=== PATIENT | female | born 1955 | race Caucasian/White ===

== ENCOUNTER 2019-03-24 08:17 | Outpatient (CLI) | payer MEDICARE ==
--- NOTE | 2019-03-24 10:30 | CT ---
CT CHEST AND ABDOMEN AND PELVIS WITH IV CONTRAST: DATE: 03/24/2019. PROVIDED CLINICAL HISTORY: Weight loss and nausea. FINDINGS: No comparisons. Vascular calcification including coronary calcium is demonstrated. The heart, pericardium, and great vessels demonstrate an otherwise unremarkable CT appearance. The lungs appear free of significant o pacity. There is no pleural fluid or pneumothorax apparent. There is no evidence for thoracic lymph node enlargement. The airway appears patent and of normal caliber. There is a small simple cyst at the superior pole of the right kidney. The solid abdominal organs de monstrate an otherwise unremarkable CT appearance. There is no bowel dilatation, inflammatory fat stranding, free fluid, or lymph node enlargement appar ent. Vascular calcifications are noted involving the abdominal aorta and its branches. There is prominenc e of the gastric mucosa in the region of the gastric cardiac, nonspecific. The osseous structures demonstrate no concerning lytic or blastic lesions. Lower lumbar spine degene rative changes are seen. IMPRESSION: 1. Nonspecific prominence of the gastric mucosa in the region of the cardia. This could be on the b asis of coapted normal gastric mucosa. Given the patient's history, correlation with upper GI may be useful. 2. Chronic findings as above. POS: [facility]
[2019-03-24] MEDS ORDERED: ISOVUE-370 76%-LOCM 1 ML ONE (11:22)
== END 2019-03-24 08:18 | disposition home or self-care (01) ==
LOC: BICCT 08:17
PROVIDERS: ATTEND Family Medicine
DX: D72.829 Elevated white blood cell count, unspecified (principal); R61 Generalized hyperhidrosis; R63.4 Abnormal weight loss; I25.10 Atherosclerotic heart disease of native coronary artery without angina pectoris; N28.1 Cyst of kidney, acquired; I70.0 Atherosclerosis of aorta; M47.816 Spondylosis without myelopathy or radiculopathy, lumbar region
CPT/HCPCS: 71260; 74177; Q9966

== ENCOUNTER 2019-06-29 09:22 | Day surgery (SDC) | payer MEDICARE ==
[2019-06-25 10:39] VITALS: BMI 21.4
--- NOTE | 2019-06-29 18:14 | OP ---
DATE OF PROCEDURE: 06/29/2019 PROCEDURES PERFORMED: Colonoscopy with snare polypectomy. PREOPERATIVE DIAGNOSIS: Immunohistochemical stain positive for fecal occult blood. DESCRIPTION OF PROCEDURE: Informed consent was obtained from the patient. She was sedated with total intravenous anesthesia. The rectal exam was performed and was normal. The colonoscope was advanced easily to the cecum with the ileocecal valve and appendiceal orifice were clearly identified. The preparation quality was excellent. There was a single 4 mm pale polyp removed from the sigmoid colon by cold snare polypectomy. This was not retrieved by the retrieval device. She had mild diverticulosis of the sigmoid colon. There were moderate internal hemorrhoids on retroflexed views in the rectum. The remainder of the colonic mucosa was normal. IMPRESSION: 1. There was a 4 mm pale polyp removed from the sigmoid colon by cold snare polypectomy. This could not be retrieved. 2. Moderate internal hemorrhoids. 3. Mild sigmoid diverticulosis. RECOMMENDATIONS: Repeat colonoscopy in 5 years. Job ID: [id number]
== END 2019-06-29 14:35 | disposition home or self-care (01) ==
LOC: SDC 09:22
PROVIDERS: ATTEND Internal Medicine Gastroenterology
PROC: 0DBN8ZZ Excision of Sigmoid Colon, Via Natural or Artificial Opening Endoscopic (ICD-10-PCS; principal; 2019-06-29)
DX: K63.5 Polyp of colon (principal); K64.8 Other hemorrhoids; K57.30 Diverticulosis of large intestine without perforation or abscess without bleeding; E78.00 Pure hypercholesterolemia, unspecified; F41.9 Anxiety disorder, unspecified

== ENCOUNTER 2023-06-09 13:03 | Outpatient (CLI) | payer MEDICARE ==
[~2023-06-09 13:03] MED LIST: Iopamidol-370 76% 500 ML MDV (1 ML CHARGE) ONE
== END 2023-06-09 13:04 | disposition home or self-care (01) ==
LOC: BICCT 13:03
PROVIDERS: ATTEND Physician Assistant Medical
DX: R63.4 Abnormal weight loss (principal); R68.81 Early satiety; Z86.010 Personal history of colon polyps; J39.8 Other specified diseases of upper respiratory tract; R91.8 Other nonspecific abnormal finding of lung field; I70.90 Unspecified atherosclerosis
CPT/HCPCS: 74177; Q9967

== ENCOUNTER 2023-07-03 06:00 | Day surgery (SDC) | payer MEDICARE ==
[2023-07-02 12:30] VITALS: BMI 19.7
[2023-07-03] MEDS ORDERED: Lidocaine 1% PF 5 ML VIAL ONE (07:58)
[2023-07-03] MEDS ORDERED: PROPOFOL 200 MG/20 ML VIAL ONE (07:58)
== END 2023-07-03 09:32 | disposition home or self-care (01) ==
LOC: SDC 06:00
PROVIDERS: ATTEND Internal Medicine Gastroenterology
PROC: 0DBM8ZZ Excision of Descending Colon, Via Natural or Artificial Opening Endoscopic (ICD-10-PCS; principal; 2023-07-03)
PROC: 0DBL8ZZ Excision of Transverse Colon, Via Natural or Artificial Opening Endoscopic (ICD-10-PCS; 2023-07-03)
PROC: 0DB98ZX Excision of Duodenum, Via Natural or Artificial Opening Endoscopic, Diagnostic (ICD-10-PCS; 2023-07-03)
PROC: 0DB68ZX Excision of Stomach, Via Natural or Artificial Opening Endoscopic, Diagnostic (ICD-10-PCS; 2023-07-03)
PROC: 0D758ZZ Dilation of Esophagus, Via Natural or Artificial Opening Endoscopic (ICD-10-PCS; 2023-07-03)
DX: D12.3 Benign neoplasm of transverse colon (principal); D12.4 Benign neoplasm of descending colon; K44.9 Diaphragmatic hernia without obstruction or gangrene; K64.8 Other hemorrhoids; K22.2 Esophageal obstruction; K57.30 Diverticulosis of large intestine without perforation or abscess without bleeding; K29.50 Unspecified chronic gastritis without bleeding; K29.80 Duodenitis without bleeding; I10 Essential (primary) hypertension; E78.5 Hyperlipidemia, unspecified; K31.89 Other diseases of stomach and duodenum; J39.8 Other specified diseases of upper respiratory tract; R63.4 Abnormal weight loss; R68.81 Early satiety; Z86.010 Personal history of colon polyps
CPT/HCPCS: 88305; J2704

== ENCOUNTER 2023-07-14 09:58 | Outpatient (CLI) | payer MEDICARE | END 2023-07-14 09:59 | disposition home or self-care (01) | LOC: BICCT 09:58 | PROVIDERS: ATTEND Family Medicine | DX: J18.9 Pneumonia, unspecified organism (principal) | CPT/HCPCS: 71260; Q9967 ==

== ENCOUNTER 2023-08-19 13:32 | Outpatient (CLI) | payer MEDICARE | END 2023-08-19 13:33 | disposition home or self-care (01) | LOC: MRI 13:32 | PROVIDERS: ATTEND Family Medicine | DX: R41.3 Other amnesia (principal); I67.82 Cerebral ischemia; H74.8X3 Other specified disorders of middle ear and mastoid, bilateral | CPT/HCPCS: 70551 ==

== ENCOUNTER 2024-12-20 08:07 | Outpatient (CLI) | payer MEDICARE | END 2024-12-20 08:08 | disposition home or self-care (01) | LOC: BICMAMMO 08:07 | PROVIDERS: ATTEND Family Medicine | DX: Z12.31 Encounter for screening mammogram for malignant neoplasm of breast (principal); N95.9 Unspecified menopausal and perimenopausal disorder; M85.852 Other specified disorders of bone density and structure, left thigh | CPT/HCPCS: 77063; 77067; 77080 ==